=== PATIENT | male | born 1955 | race Caucasian/White ===

== ENCOUNTER → 2019-02-19 | Emergency (ER) | payer SELFPAY ==
[~2019-02-19] MED LIST: AMLO-127; CEF300 PO; CEFD300C35 PO; CITA-141; IOPAMIDOL 76% 150 ML INFUS BTL 150 ML ONE; LOSA100T75 PO; NS(*) 0.9% 1000 ML BAG 1,000 ML IV ONE; PIPERACILLIN/TAZO* 4.5 GM VIAL 4.5 GM in NS(*) 0.9% 100 ML MINI-BAG 100 ML IVPB ONE; PRED20TA6 PO
--- NOTE | 2019-02-19 11:39 | ER Report ---
History and Physical Time Seen By MD: 11:39 HPI/ROS CHIEF COMPLAINT: Abdominal pain HISTORY OF PRESENT ILLNESS: 63-year-old male patient presents to emergency room with complaint of abdominal pain. Patient states this been going on for the past several months. Patient states that he did go and seek treatment at the [facility] last Thursday. He states that that time that they did an acute abdominal x-ray, they found that there was no kidney stones, however they noted that he did have significant amount of stool in his colon. They started him on MiraLAX and omeprazole. He states that since then he's not been able to get out of bed. States the pain has gotten worse. States the pain seemed to migrate from the right upper quadrant to the left lower quadrant. Patient denies having any fevers, chills, nausea, vomiting or diarrhea. Patient states he has not taken any other medication except for the MiraLAX for this pain. REVIEW OF SYSTEMS: Respiratory: No cough, no dyspnea. Cardiovascular: No chest pain, no palpitations. Gastrointestinal: As noted above Musculoskeletal: No back pain. Allergies: Coded Allergies: omeprazole (Verified Allergy, Intermediate, ringing in ears; headache, dizziness, sweating, nausea, 02/19/19) ibuprofen (Verified Allergy, Unknown, RASH, 02/19/19) Home Meds Reported Medications Citalopram Hydrobromide (CITALOPRAM HBR) 40 Mg Tablet 02/19/19 Amlodipine Besylate (AMLODIPINE BESYLATE) 10 Mg Tablet 02/19/19 Discontinued Reported Medications Losartan Potassium (LOSARTAN POTASSIUM) 100 Mg Tablet, 100 MG PO QDAY 08/16/14 Discontinued Scripts Cefdinir 300 Mg Cap (OMNICEF 300 MG CAP (OR EQUIV)) 300 Mg Capsule, 300 MG PO BID, #14 CAPSULE TAKE 1 CAPSULE BY MOUTH TWICE DAILY; to start taking after finishing his current prescription for a total of 2 weeks with both Prov:FRENCH JOHNSON 08/20/14 Prednisone (PREDNISONE) 20 Mg Tablet, 40 MG PO QDAY, #8 TAB Prov:FRENCH JOHNSON 08/20/14 Cefdinir 300 Mg Cap (OMNICEF 300 MG CAP (OR EQUIV)) 300 Mg Capsule, 300 MG PO BID, #14 CAPSULE TAKE 1 CAPSULE BY MOUTH TWICE DAILY Prov:JAYME ROSE MD 08/16/14 Past Medical/Surgical History Patient denies any pertinent medical history. Patient has a surgical history of a femur fracture repair. The patient denies any pertinent family medical history. Reviewed Nurses Notes: Yes Hx Smoking: No Smoking Status: Former Smoker Hx Substance Use Disorder: No Hx Alcohol Use: No Constitutional Vital Sign - Last 24 Hours 02/19/19 02/19/19 02/19/19 02/19/19 11:35 11:35 11:39 11:44 Temp 97.7 Pulse 80 79 75 Resp 16 B/P (MAP) 134/85 134/85 (101) Pulse Ox 90 91 93 O2 Delivery Room Air 02/19/19 02/19/19 02/19/19 02/19/19 11:49 11:54 11:59 12:00 Pulse 75 77 74 B/P (MAP) 123/81 (95) Pulse Ox 93 91 91 02/19/19 02/19/19 02/19/19 02/19/19 12:04 12:09 12:19 12:24 Pulse 74 75 77 77 Pulse Ox 91 89 90 90 02/19/19 02/19/19 02/19/19 02/19/19 12:39 12:44 12:49 12:54 Pulse 74 74 74 73 Pulse Ox 91 94 90 89 02/19/19 02/19/19 02/19/19 02/19/19 12:59 13:00 13:04 13:09 Pulse 75 70 72 B/P (MAP) 115/71 (86) Pulse Ox 89 94 93 02/19/19 02/19/19 02/19/19 02/19/19 13:14 13:19 13:24 13:29 Pulse 72 73 73 76 Pulse Ox 94 94 94 93 02/19/19 02/19/19 02/19/19 02/19/19 13:30 13:34 13:39 13:44 Pulse 73 73 B/P (MAP) 127/72 (90) Pulse Ox 94 95 94 02/19/19 02/19/19 02/19/19 02/19/19 14:24 14:29 14:30 14:34 Pulse 73 72 74 B/P (MAP) 57/33 (41) Pulse Ox 87 92 90 02/19/19 02/19/19 02/19/19 02/19/19 14:39 14:44 14:49 14:54 Pulse 72 72 72 74 Pulse Ox 93 92 92 95 02/19/19 02/19/19 02/19/19 02/19/19 14:59 15:00 15:04 15:09 Pulse 72 ? B/P (MAP) ???/??? (1664) Pulse Ox 95 02/19/19 02/19/19 02/19/19 02/19/19 15:14 15:19 15:24 15:29 Pulse 71 73 72 75 Pulse Ox 95 95 97 95 02/19/19 02/19/19 02/19/19 02/19/19 15:30 15:34 15:39 15:44 Pulse 73 72 72 B/P (MAP) ???/??? (1664) Pulse Ox 95 93 95 O2 Delivery Nasal Cannula O2 Flow Rate 3 02/19/19 02/19/19 02/19/19 02/19/19 15:49 15:54 15:59 16:00 Pulse 78 77 82 B/P (MAP) ???/??? (1664) Pulse Ox 95 97 95 02/19/19 02/19/19 02/19/19 02/19/19 16:03 16:04 16:09 16:14 Pulse 73 79 79 B/P (MAP) 133/74 (93) Pulse Ox 95 96 96 02/19/19 02/19/19 02/19/19 02/19/19 16:19 16:24 16:29 16:30 Pulse 78 74 74 B/P (MAP) 121/73 (89) Pulse Ox 95 96 02/19/19 02/19/19 16:34 16:39 Pulse 76 72 Pulse Ox 94 95 O2 Delivery Nasal Cannula O2 Flow Rate 2 Physical Exam General Appearance: The patient is alert, has no immediate need for airway protection and no current signs of toxicity. Respiratory: Chest is non tender, lungs are clear to auscultation. Cardiac: regular rate and rhythm Gastrointestinal: Abdomen is distended and tender in the right upper quadrant, left lower quadrant and left upper quadrant, no masses, bowel sounds are hypoactive. Musculoskeletal: Neck: Neck is supple and non tender. Extremities have full range of motion and are non tender. Skin: No rashes or lesions. DIFFERENTIAL DIAGNOSIS: After history and physical exam differential diagnosis was considered for abdominal pain including but not limited to appendicitis, cholecystitis, gastritis and urinary tract infection. Medical Decision Making Data Points Result Diagram: 02/19/19 1149 02/19/19 1149 Laboratory Hematology Test 02/19/19 11:49 02/19/19 12:20 02/19/19 12:44 Red Blood Count 4.31 M/uL (4.00-5.60) Mean Corpuscular Volume 93.7 fL (80.0-96.0) Mean Corpuscular Hemoglobin 31.3 pg (26.0-33.0) Mean Corpuscular Hemoglobin Concent 33.5 g/dL (32.0-36.0) Red Cell Distribution Width 13.9 % (11.5-14.5) Mean Platelet Volume 8.4 fL (7.2-11.1) Neutrophils (%) (Auto) 83.9 % (39.4-72.5) Lymphocytes (%) (Auto) 7.3 % (17.6-49.6) Monocytes (%) (Auto) 7.5 % (4.1-12.4) Eosinophils (%) (Auto) 0.9 % (0.4-6.7) Basophils (%) (Auto) 0.4 % (0.3-1.4) Nucleated RBC Relative Count (auto) 0.0 /100WBC Neutrophils # (Auto) 14.8 K/uL (2.0-7.4) Lymphocytes # (Auto) 1.3 K/uL (1.3-3.6) Monocytes # (Auto) 1.3 K/uL (0.3-1.0) Eosinophils # (Auto) 0.2 K/uL (0.0-0.5) Basophils # (Auto) 0.1 K/uL (0.0-0.1) Nucleated RBC Absolute Count (auto) 0.00 K/uL Sodium Level 133 mmol/L (137-145) Potassium Level 3.9 mmol/L (3.5-5.0) Chloride Level 102 mmol/L (98-107) Carbon Dioxide Level 23 mmol/L (22-30) Blood Urea Nitrogen 22 mg/dl (9-21) Creatinine 1.40 mg/dl (0.66-1.25) Glomerular Filtration Rate Calc 51.4 Random Glucose 105 mg/dl (75-110) Calcium Level 8.7 mg/dl (8.4-10.2) Total Bilirubin 0.8 mg/dl (0.2-1.3) Aspartate Amino Transf (AST/SGOT) 30 U/L (0-35) Alanine Aminotransferase (ALT/SGPT) 35 U/L (0-56) Alkaline Phosphatase 158 U/L (0-126) C-Reactive Protein 22.9 mg/dl (<1.0) Total Protein 6.8 g/dl (6.3-8.2) Albumin 3.3 g/dl (3.5-5.0) Amylase Level 138 U/L (0-110) Lipase 341 U/L (23-300) Helicobacter pylori IgG Antibody Negative (NEGATIVE) Urine Color Meagan Urine Clarity Slightly-cloudy Urine pH 6.0 pH (4.8-9.5) Urine Specific [place] 1.026 Urine Protein Negative mg/dL (NEGATIVE) Urine Glucose (UA) Negative mg/dL (NEGATIVE) Urine Ketones Negative mg/dL (NEGATIVE) Urine Blood Negative (NEGATIVE) Urine Nitrite Negative (NEGATIVE) Urine Bilirubin Negative (NEGATIVE) Urine Urobilinogen 0.2 mg/dL (0.2-1.9) Urine Leukocyte Esterase Negative (NEGATIVE) Urine RBC None /HPF (0-2/HPF) Urine WBC 2 /HPF (0-5/HPF) Urine Squamous Epithelial Cells Few /LPF (</=FEW) Urine Bacteria Few /HPF (NONE-FEW) Urine Mucus Few /HPF (NONE-FEW) Lactate 0.9 mmol/L (0.7-2.1) Chemistry Test 02/19/19 11:49 02/19/19 12:20 02/19/19 12:44 White Blood Count 17.7 k/uL (4.5-11.0) Red Blood Count 4.31 M/uL (4.00-5.60) Hemoglobin 13.5 g/dL (14.0-18.0) Hematocrit 40.4 % (42.0-52.0) Mean Corpuscular Volume 93.7 fL (80.0-96.0) Mean Corpuscular Hemoglobin 31.3 pg (26.0-33.0) Mean Corpuscular Hemoglobin Concent 33.5 g/dL (32.0-36.0) Red Cell Distribution Width 13.9 % (11.5-14.5) Platelet Count 317 K/uL (150-450) Mean Platelet Volume 8.4 fL (7.2-11.1) Neutrophils (%) (Auto) 83.9 % (39.4-72.5) Lymphocytes (%) (Auto) 7.3 % (17.6-49.6) Monocytes (%) (Auto) 7.5 % (4.1-12.4) Eosinophils (%) (Auto) 0.9 % (0.4-6.7) Basophils (%) (Auto) 0.4 % (0.3-1.4) Nucleated RBC Relative Count (auto) 0.0 /100WBC Neutrophils # (Auto) 14.8 K/uL (2.0-7.4) Lymphocytes # (Auto) 1.3 K/uL (1.3-3.6) Monocytes # (Auto) 1.3 K/uL (0.3-1.0) Eosinophils # (Auto) 0.2 K/uL (0.0-0.5) Basophils # (Auto) 0.1 K/uL (0.0-0.1) Nucleated RBC Absolute Count (auto) 0.00 K/uL Glomerular Filtration Rate Calc 51.4 Calcium Level 8.7 mg/dl (8.4-10.2) Total Bilirubin 0.8 mg/dl (0.2-1.3) Aspartate Amino Transf (AST/SGOT) 30 U/L (0-35) Alanine Aminotransferase (ALT/SGPT) 35 U/L (0-56) Alkaline Phosphatase 158 U/L (0-126) C-Reactive Protein 22.9 mg/dl (<1.0) Total Protein 6.8 g/dl (6.3-8.2) Albumin 3.3 g/dl (3.5-5.0) Amylase Level 138 U/L (0-110) Lipase 341 U/L (23-300) Helicobacter pylori IgG Antibody Negative (NEGATIVE) Urine Color Meagan Urine Clarity Slightly-cloudy Urine pH 6.0 pH (4.8-9.5) Urine Specific [place]land 1.026 Urine Protein Negative mg/dL (NEGATIVE) Urine Glucose (UA) Negative mg/dL (NEGATIVE) Urine Ketones Negative mg/dL (NEGATIVE) Urine Blood Negative (NEGATIVE) Urine Nitrite Negative (NEGATIVE) Urine Bilirubin Negative (NEGATIVE) Urine Urobilinogen 0.2 mg/dL (0.2-1.9) Urine Leukocyte Esterase Negative (NEGATIVE) Urine RBC None /HPF (0-2/HPF) Urine WBC 2 /HPF (0-5/HPF) Urine Squamous Epithelial Cells Few /LPF (</=FEW) Urine Bacteria Few /HPF (NONE-FEW) Urine Mucus Few /HPF (NONE-FEW) Lactate 0.9 mmol/L (0.7-2.1) Urinalysis Test 02/19/19 12:20 Urine Color Meagan Urine Clarity Slightly-cloudy Urine pH 6.0 pH (4.8-9.5) Urine Specific [place] 1.026 Urine Protein Negative mg/dL (NEGATIVE) Urine Glucose (UA) Negative mg/dL (NEGATIVE) Urine Ketones Negative mg/dL (NEGATIVE) Urine Blood Negative (NEGATIVE) Urine Nitrite Negative (NEGATIVE) Urine Bilirubin Negative (NEGATIVE) Urine Urobilinogen 0.2 mg/dL (0.2-1.9) Urine Leukocyte Esterase Negative (NEGATIVE) Urine RBC None /HPF (0-2/HPF) Urine WBC 2 /HPF (0-5/HPF) Urine Squamous Epithelial Cells Few /LPF (</=FEW) Urine Bacteria Few /HPF (NONE-FEW) Urine Mucus Few /HPF (NONE-FEW) EKG/Imaging Imaging GALLBLADDER History: 63-year-old male with gallbladder wall thickening and distention. Findings suggestive of acute cholecystitis. Comparison study: CT scan February 19, 2019. Procedure: There has been satisfactory and complete grayscale ultrasonic evaluation of the abdomen. Findings: Liver: The liver has normal echotexture and no focal lesions are seen. Surface contour is smooth. There is hepatopedal blood flow in the main portal vein and there is no abdominal ascites. Biliary: The gallbladder is markedly distended. Gallbladder wall thickness is greater than normal measuring 9 mm in size. The sonographic Raya sign is not possible the patient has been given medications. There is sludge in the gal lbladder. There is a pocket of pericholecystic fluid medial to the gallbladder. The findings are worrisome for acute cholecystitis due to sludge. The common bile duct measures 3.7 mm. Spleen: Not imaged Pancreas: Normal. No peripancreatic fluid collections seen. Kidneys: No hydronephrosis on the right side. Aorta and IVC: Flow is identified in both the aorta and IVC. IMPRESSION: 1. The gallbladder is markedly distended and there is significant gallbladder with thickening to 9.7 mm. There is sludge in the gallbladder and the findings are worrisome for acute cholecystitis. The sonographic Raya sign is negative, but this may be related to the patient recently been getting medication. There is a medial pocket of pericholecystic fluid. 2. Unremarkable liver. Results were called to FRENCH JOHNSON M.D. At 02/19/2019 3:10 PM. Report Dictated By: Donovan Whalen MD at 02/19/2019 3:05 PM Report E-Signed By: Donovan Whalen MD at 02/19/2019 3:[address] ABDOMEN PELVIS W/ CON History: 63-year-old male with diffuse abdominal pain, elevated white blood cell count, elevated CRP and elevated amylase/lipase. Technique: CT images were obtained through the abdomen and pelvis with intravenous contrast using: Isovue-370 90 mls. Coronal and sagittal reformations were then created. One of the following dose optimization techniques was utilized in the performance of this exam: Automated exposure control; adjustment of the mA and/or kV according to the patient's size; or use of an iterative re construction technique. Specific details can be referenced in the facility's radiology CT exam operational policy. Comparison study: None Findings: Lung bases: There is no abnormality in either lung base. There are several small pericardial lymph nodes the largest measures 16 x 5 mm in size and it is located anteriorly. Liver: There are couple small low-density lesions in the liver that likely represent tiny hepatic cysts. Biliary: The gallbladder is dilated. There is thickening of the gallbladder wall. No gallstones are seen there is no intrahepatic ductal dilatation. The common bile duct does not appear to be dilated. The findings are suspicious for acute cholecystitis or cystic duct obstruction of some alternative etiology. Could be a cholangiocarcinoma causing the cystic duct obstruction. Spleen: Negative. Adrenals: Negative Pancreas: There is no finding of a mass or pancreatic ductal dilatation Kidneys/genitourinary/retroperitoneum: No finding of hydronephrosis or nephrolithiasis.. Bowel/peritoneum/mesentery: In the left upper quadrant there is tethering and dilatation of several loops of jejunum there is thickening of the omentum with inflammatory change and the findings are suspicious for peritoneal carcinomatosis. There is thickening of the gastric antrum, but the stomach is not distended. There is increased density in the gastrohepatic ligament with irregularity of the left lateral liver margin suggesting gastric carcinoma with local extension into the gastrohepatic ligament. Pelvic/genital urinary: The bladder is mildly distended. There is BPH. There is no fluid in the pelvis there is no inguinal hernia. Vessels: Negative. Lymph node: There are several pericardial lymph nodes.. Body wall/bones: There is a umbilical hernia with a narrow neck and a small amount of fluid within it. It does not appear to be causing obstruction. Peritoneal cavity: Infiltration of the omentum anteriorly worrisome for gastric carcinoma and peritoneal carcinomatosis IMPRESSION: 1. There is thickening of the gastric antrum with extension of soft tissue density into the gastrohepatic ligament and irregularity of the left lateral margin of the liver. These findings are worrisome for gastric carcinoma. In addition to this there is infiltration of the omentum raising the possibility of peritoneal carcinomatosis. 2. The gallbladder is distended and there is wall thickening. There is no intra and extrahepatic bile duct dilatation, possibly the findings are worrisome for cystic duct obstruction related to peritoneal carcinomatosis or gallstones that cannot be seen on CT imaging. Ultrasound will be helpful for further evaluation. 3. Small periumbilical hernia with a small amount of fluid in it. 4. Several small pericardial lymph nodes. 5. There are dilated loops of jejunum in the left upper quadrant. It does not appear to be related to the aforementioned tiny periumbilical hernia, but with tethering of loops of the jejunum and the possibility of peritoneal carcinomatosis, infiltration of the small bowel or partial small bowel obstruc tion is raised. Results were called to FRENCH PARIKH M.D. At 02/19/2019 1:07 PM. Report Dictated By: Donovan Whalen MD at 02/19/2019 12:49 PM Report E-Signed By: Donovan Whalen MD at 02/19/2019 1:10 PM ED Course/Re-evaluation ED Course Patient was admitted to an exam room, history and physical were obtained. Differential diagnoses were considered. On examination lungs are clear, heart is regular, abdomen is distended and tender in the right upper quadrant, left upper quadrant and left lower quadrant. An IV was started, a CBC, CMP, urinalysis, CRP were done. Patient did have an elevated white count of 17,000 with left shift, CRP was elevated at 22.9. Urinalysis was negative, kidney function showed elevated creatinine of 1.4, BUN of 22. CT scan of the abdomen and pelvis was done. The results showed gallbladder wall thickening the recommended getting an ultrasound. Also noted thickening of the omentum, distal jejunum, thickening of the gastric antrum. We did give him a ultrasound done of the gallbladder which showed gallbladder wall thickening and layered sludge. The gallbladder wall measured 9.7 mm. I discussed the case with Dr. Maki, general surgeon. He reviewed the images, and felt that with the thickening of the gastric antrum, jejunum and omentum that the patient would be better served with a multidisciplinary approach. I then spoke with Dr. Beck, general surgeon at [facility]. She agreed to accept the patient for transfer. She requested the patient be transferred to the emergency room and that the images be pushed down for her to review. I discussed the findings of the lab work, the results of the imaging and the likelihood of a cholecystitis as well as thickening of the gastric antrum, jejunum and omentum. I discussed them that Dr. Maki's recommendation was transfer to a higher level of care. The patient verbalized understanding and agreement with plan. We will go ahead and treat him with Zosyn here in the emergency room. Patient will be transferred down by ambulance. Decision to Disposition Date: February 19, 2019 Decision to Disposition Time: 16:16 Depart Departure Latest Vital Signs Vital Signs Date Time Temp Pulse Resp B/P (MAP) Pulse Ox O2 Delivery O2 Flow Rate FiO2 02/19/19 16:39 72 95 Nasal Cannula 2 02/19/19 16:30 121/73 (89) 02/19/19 11:35 97.7 16 Impression: Primary Impression: Cholecystitis Additional Impression: Gastric wall thickening Condition: Condition Unchanged Disposition: XFER TO ACUTE CARE HOSPITAL Referrals: BRIA CANALES (PCP) Problem Qualifiers FRENCH JOHNSON February 19, 2019 11:39
[2019-02-19 12:07] LABS: PLATELET COUNT, AUTOMATED 317 K/uL (150-450)
--- NOTE | 2019-02-19 13:12 | RADIOLOGY IMAGING REPORT ---
FACILITY: [facility] [place] PATIENT NAME: Og Mejia : 1955 MR: [id number] V: [id number] EXAM DATE: ORDERING PHYSICIAN: FRENCH JOHNSON TECHNOLOGIST: Location: [facility] Patient: Og Mejia : 1955 Visit/Account:[id number] Date of Sevice: 02/19/2019 CT ABDOMEN PELVIS W/ CON History: 63-year-old male with diffuse abdominal pain, elevated white blood cell count, elevated CRP and elevated amylase/lipase. Technique: CT images were obtained through the abdomen and pelvis with intravenous contrast using: I sovue-370 90 mls. Coronal and sagittal reformations were then created. One of the following dose optimization techniques was utilized in the performance of this exam: Autom ated exposure control; adjustment of the mA and/or kV according to the patient's size; or use of an i terative reconstruction technique. Specific details can be referenced in the facility's radiology C T exam operational policy. Comparison study: None Findings: Lung bases: There is no abnormality in either lung base. There are several small pericardial lymph no angelito the largest measures 16 x 5 mm in size and it is located anteriorly. Liver: There are couple small low-density lesions in the liver that likely represent tiny hepatic cys ts. Biliary: The gallbladder is dilated. There is thickening of the gallbladder wall. No gallstones are s een there is no intrahepatic ductal dilatation. The common bile duct does not appear to be dilated. T he findings are suspicious for acute cholecystitis or cystic duct obstruction of some alternative leo ology. Could be a cholangiocarcinoma causing the cystic duct obstruction. Spleen: Negative. Adrenals: Negative Pancreas: There is no finding of a mass or pancreatic ductal dilatation Kidneys/genitourinary/retroperitoneum: No finding of hydronephrosis or nephrolithiasis.. Bowel/peritoneum/mesentery: In the left upper quadrant there is tethering and dilatation of several l oops of jejunum there is thickening of the omentum with inflammatory change and the findings are susp icious for peritoneal carcinomatosis. There is thickening of the gastric antrum, but the stomach is n ot distended. There is increased density in the gastrohepatic ligament with irregularity of the left lateral liver margin suggesting gastric carcinoma with local extension into the gastrohepatic ligamen t. Pelvic/genital urinary: The bladder is mildly distended. There is BPH. There is no fluid in the pelvi s there is no inguinal hernia. Vessels: Negative. Lymph node: There are several pericardial lymph nodes.. Body wall/bones: There is a umbilical hernia with a narrow neck and a small amount of fluid within it . It does not appear to be causing obstruction. Peritoneal cavity: Infiltration of the omentum anteriorly worrisome for gastric carcinoma and periton eal carcinomatosis IMPRESSION: 1. There is thickening of the gastric antrum with extension of soft tissue density into the gastrohep atic ligament and irregularity of the left lateral margin of the liver. These findings are worrisome for gastric carcinoma. In addition to this there is infiltration of the omentum raising the possibili ty of peritoneal carcinomatosis. 2. The gallbladder is distended and there is wall thickening. There is no intra and extrahepatic bile duct dilatation, possibly the findings are worrisome for cystic duct obstruction related to peritone al carcinomatosis or gallstones that cannot be seen on CT imaging. Ultrasound will be helpful for fur ther evaluation. 3. Small periumbilical hernia with a small amount of fluid in it. 4. Several small pericardial lymph nodes. 5. There are dilated loops of jejunum in the left upper quadrant. It does not appear to be related to the aforementioned tiny periumbilical hernia, but with tethering of loops of the jejunum and the pos sibility of peritoneal carcinomatosis, infiltration of the small bowel or partial small bowel obstruc tion is raised. Results were called to FRENCH PARIKH M.D. At 02/19/2019 1:07 PM. Report Dictated By: Donovan Whalen MD at 02/19/2019 12:49 PM Report E-Signed By: Donovan Whalen MD at 02/19/2019 1:10 PM WSN:[id number]
--- NOTE | 2019-02-19 15:47 | RADIOLOGY IMAGING REPORT ---
FACILITY: PATIENT NAME: Og Mejia : 1955 MR: [id number] V: [id number] EXAM DATE: ORDERING PHYSICIAN: FRENCH JOHNSON TECHNOLOGIST: [place] [facility] [place] : 1955 Visit/Account:[id number] Date of Sevice: 02/19/2019 GALLBLADDER History: 63-year-old male with gallbladder wall thickening and distention. Findings suggestive of acu te cholecystitis. Comparison study: CT scan February 19, 2019. Procedure: There has been satisfactory and complete grayscale ultrasonic evaluation of the abdomen. Findings: Liver: The liver has normal echotexture and no focal lesions are seen. Surface contour is smooth. The re is hepatopedal blood flow in the main portal vein and there is no abdominal ascites. Biliary: The gallbladder is markedly distended. Gallbladder wall thickness is greater than normal penny suring 9 mm in size. The sonographic Raya sign is not possible the patient has been given medicatio ns. There is sludge in the gallbladder. There is a pocket of pericholecystic fluid medial to the gall bladder. The findings are worrisome for acute cholecystitis due to sludge. The common bile duct measu res 3.7 mm. Spleen: Not imaged Pancreas: Normal. No peripancreatic fluid collections seen. Kidneys: No hydronephrosis on the right side. Aorta and IVC: Flow is identified in both the aorta and IVC. IMPRESSION: 1. The gallbladder is markedly distended and there is significant gallbladder with thickening to 9.7 mm. There is sludge in the gallbladder and the findings are worrisome for acute cholecystitis. The so nographic Raya sign is negative, but this may be related to the patient recently been getting medic ation. There is a medial pocket of pericholecystic fluid. 2. Unremarkable liver. Results were called to FRENCH JOHNSON M.D. At 02/19/2019 3:10 PM. Report Dictated By: Donovan Whalen MD at 02/19/2019 3:05 PM Report E-Signed By: Donovan Whalen MD at 02/19/2019 3:43 PM WSN:[id number]
[2019-02-19 16:30] VITALS: BP 121/73
== END ==
LOC: ER 11:33
DX: K81.9 Cholecystitis, unspecified (principal); K31.89 Other diseases of stomach and duodenum
CPT/HCPCS: 74177; 76705; 81001; 82150; 83605; 83690; 85025; 86140; 86677; 87088; 96361; 96365; 96366; 99284; J2543; J7030; Q9967; 82040; 82247; 82310; 82374; 82435; 82565; 82947; 84075; 84132; 84155; 84295; 84450; 84460; 84520

== ENCOUNTER → 2019-02-19 | Outpatient (CLI) | payer SELFPAY ==
[~2019-02-19] MED LIST changes: -IOPAMIDOL 76% 150 ML INFUS BTL 150 ML ONE; -NS(*) 0.9% 1000 ML BAG 1,000 ML IV ONE; -PIPERACILLIN/TAZO* 4.5 GM VIAL 4.5 GM in NS(*) 0.9% 100 ML MINI-BAG 100 ML IVPB ONE
== END ==
LOC: AMB 17:31
PROVIDERS: ATTEND Nurse Practitioner
DX: K81.9 Cholecystitis, unspecified (principal)
CPT/HCPCS: A0425; A0426